=== PATIENT | female | born 1985 | race Caucasian/White ===

== ENCOUNTER 2018-03-09 14:26 | Outpatient (CLI) | payer OTHER ==
--- NOTE | 2018-03-09 15:22 | RAD ---
LUMBAR SPINE FIVE VIEWS: History: Spondylolysis. Low back pain. Comparison: None. FINDINGS: Lateral views taken in neutral, flexion, and extension positions. Lumbar vertebrae maintain normal height and alignment. Mild loss of disc space at L5-S1. No evidence of spondylolisthesis. No significant change in lateral or flexion or extension. No definite spondylol ysis although pars at L4-5 and L5-S1 are suboptimally evaluated on this study. IMPRESSION: Mild loss of disc space at L5-S1 and mild facet hypertrophy at L4-5 and L5-S1. No spondylolisthesis. Pars defect cannot be confirmed and not well evaluated. There is suggestion of a pars defect posterio rly at L5-S1. Suggest CT lumbar spine. POS: [facility]
[2018-03-09 15:24] LABS: Pregnancy Test - Urine (BHCG) Negative (Negative); Pregu Control Background? CLEAR/WHITE (CLR/WHITE); Pregu Control Bar Appear? YES (CONTROL BAR); Specific Gravity 1.022 (1.002-1.036)
== END 2018-03-09 14:27 | disposition home or self-care (01) ==
LOC: NAV RAD 14:26
PROVIDERS: ATTEND Nurse Practitioner Family
DX: M47.816 Spondylosis without myelopathy or radiculopathy, lumbar region (principal)
CPT/HCPCS: 72120; 81025

== ENCOUNTER 2018-09-24 12:09 | Emergency (ER) | payer OTHER ==
[2018-09-24] MEDS ORDERED: Lidocaine 1% (PF) 30 ML VIAL ONE (12:42)
== END 2018-09-24 13:00 | disposition home or self-care (01) ==
LOC: NAV ERS 12:09
DX: L02.412 Cutaneous abscess of left axilla (principal); E66.9 Obesity, unspecified; F41.9 Anxiety disorder, unspecified; F32.9 Major depressive disorder, single episode, unspecified; Z87.891 Personal history of nicotine dependence; Z79.899 Other long term (current) drug therapy
CPT/HCPCS: 10061; 87070; 87077; 87186; 87205; J2001

== ENCOUNTER 2019-08-10 08:38 | Emergency (ER) | payer OTHER, SELFPAY | END 2019-08-10 09:18 | disposition home or self-care (01) | LOC: NAV ERS 08:38 | DX: K04.7 Periapical abscess without sinus (principal); E66.9 Obesity, unspecified; F41.9 Anxiety disorder, unspecified; F32.9 Major depressive disorder, single episode, unspecified; Z87.891 Personal history of nicotine dependence; Z79.899 Other long term (current) drug therapy | CPT/HCPCS: 96372; 99283; J2270 ==

== ENCOUNTER 2020-08-29 23:03 | Emergency (ER) | payer OTHER ==
[2020-08-29] MEDS ORDERED: Ketorolac Tromethamine 30 MG/ML VIAL ONE (23:30)
[2020-08-29] MEDS ORDERED: Ondansetron PF 4 MG/2 ML Vial ONE (23:30)
[2020-08-29 23:33] LABS: #Basophils 0.1 thou/uL (0.0-0.2); #Lymphocytes 1.1 thou/uL (1.20-3.40); #Monocytes 0.3 thou/uL (0.11-0.59); #Neutrophils 8.5 thou/uL (1.40-6.50); %Eosinophils 0.2 % (0.0-10.0); %Lymphocytes 10.9 % (21.0-51.0); %Monocytes 3.3 % (0.0-10.0); %Neutrophils 84.7 % (42.0-75.0); Anisocytosis MODERATE=16-30 cells (100X) (0-5/hpf); Hemoglobin 10.2 g/dL (12.0-16.0); MDiff Complete? YES; Mean Corpuscular HGB CONC 31.7 g/dL (32.0-36.0); Mean Corpuscular Hemoglobin 28.2 pg (27.0-31.0); Mean Corpuscular Volume 88.8 fL (78.0-98.0); Microcytosis SLIGHT = 6-15 cells (100X) (0-5/hpf); Ovalocytes SLIGHT = 2-5 cells (100X) (0-1/hpf); Platelet Count 262 thou/uL (130-400); Platelet Morphology Comment Appears Adequate; RBC Distribution Width 21.1 % (11.5-14.5); Red Blood Cell (RBC) Count 3.61 mill/uL (4.20-5.40)
[2020-08-29 23:44] LABS: ALT (SGPT) 9 U/L (8-55); AST (SGOT) 14 U/L (5-34); Albumin 4.6 g/dL (3.5-5.0); Alkaline Phosphatase 88 U/L (40-110); Anion Gap 15 mmol/L (10-20); BUN (Urea Nitrogen) 13 mg/dL (7.0-18.7); Bilirubin, Total 5.2 mg/dL (0.2-1.2); Calc. Creatinine Clearance 0 mL/min (70-130); Calcium 9.4 mg/dL (7.8-10.44); Carbon Dioxide 22 mmol/L (22-29); Chloride 103 mmol/L (98-107); Estimated GFR-MDRD 75; Globulin 2.8 g/dL (2.4-3.5); Glucose 151 mg/dL (70-105); Lipase 10 U/L (8-78); Potassium 4.1 mmol/L (3.5-5.1); Protein, Total 7.4 g/dL (6.0-8.3); Sodium 136 mmol/L (136-145)
== END 2020-08-30 00:33 | disposition home or self-care (01) ==
LOC: NAV ERS 23:03
DX: E80.6 Other disorders of bilirubin metabolism (principal); D64.9 Anemia, unspecified; R10.811 Right upper quadrant abdominal tenderness; E11.9 Type 2 diabetes mellitus without complications; E66.9 Obesity, unspecified; F41.9 Anxiety disorder, unspecified; F32.9 Major depressive disorder, single episode, unspecified; Z87.891 Personal history of nicotine dependence; Z79.84 Long term (current) use of oral hypoglycemic drugs; Z79.899 Other long term (current) drug therapy; Z85.43 Personal history of malignant neoplasm of ovary
CPT/HCPCS: 80053; 83690; 85025; 94760; 96372; 96374; 96375; J0500; J1885; J2405

== ENCOUNTER 2021-08-05 17:02 | Emergency (ER) | payer OTHER ==
[2021-08-05] MEDS ORDERED: Lidocaine 1% (PF) 30 ML VIAL ONE (17:22)
== END 2021-08-05 17:54 | disposition home or self-care (01) ==
LOC: NAV ERS 17:02
DX: L02.412 Cutaneous abscess of left axilla (principal); E11.9 Type 2 diabetes mellitus without complications; Z87.891 Personal history of nicotine dependence; Z79.899 Other long term (current) drug therapy
CPT/HCPCS: 10060; 87070; 87077; 87186; 87205; J2001

== ENCOUNTER 2021-08-07 17:44 | Emergency (ER) | payer OTHER | END 2021-08-07 18:30 | disposition home or self-care (01) | LOC: NAV ERS 17:44 | DX: Z48.817 Encounter for surgical aftercare following surgery on the skin and subcutaneous tissue (principal); E11.9 Type 2 diabetes mellitus without complications; Z87.891 Personal history of nicotine dependence; Z79.899 Other long term (current) drug therapy | CPT/HCPCS: 99282 ==

== ENCOUNTER 2021-12-21 05:22 | Emergency (ER) | payer BC, OTHER ==
[2021-12-21 05:49] LABS: Bilirubin Moderate (Negative); Blood, Urine Trace (Negative); Clarity Slightly Cloudy (Clear); Glucose, Urine (Dipstick) Negative (Negative); Ketone, Urine Negative (Negative); Leukocyte Trace (Negative); Nitrite Negative (Negative); Protein, Urine (Dipstick) Trace mg/dL (Neg-Trace); Specific Gravity, Urine 1.025 (1.005-1.030); pH, Urine 5.5 (5.0-9.0)
[2021-12-21 06:01] LABS: Bacteria/HPF 2+ HPF (None Seen); Mucous/LPF 1+ LPF (<2+); RBC/HPF 0-3 HPF (0-3); WBC/HPF 0-3 HPF (0-3)
[2021-12-21 06:42] LABS: Pregnancy Test - Urine (BHCG) Negative (Negative); Pregu Control Background? CLEAR/WHITE (CLR/WHITE); Pregu Control Bar Appear? YES (CONTROL BAR)
[2021-12-21 06:43] LABS: Specific Gravity 1.025 (1.002-1.036)
[2021-12-21 06:47] LABS: #Basophils 0.1 thou/uL (0.0-0.2); #Eosinphils 0.2 thou/uL (0.0-0.7); #Lymphocytes 2.2 thou/uL (1.20-3.40); #Monocytes 0.4 thou/uL (0.11-0.59); #Neutrophils 7.5 thou/uL (1.40-6.50); %Eosinophils 1.8 % (0.0-10.0); %Lymphocytes 20.8 % (21.0-51.0); %Monocytes 4.1 % (0.0-10.0); %Neutrophils 72.3 % (42.0-75.0); Hemoglobin 6.1 g/dL (12.0-16.0); Mean Corpuscular HGB CONC 31.8 g/dL (32.0-36.0); Mean Corpuscular Hemoglobin 26.6 pg (27.0-31.0); Mean Corpuscular Volume 83.7 fL (78.0-98.0); Mean Platelet Volume 6.5 fL (7.4-10.4); Platelet Count 400 thou/uL (130-400); RBC Distribution Width 22.2 % (11.5-14.5); Red Blood Cell (RBC) Count 2.29 mill/uL (4.20-5.40); White Blood Cell (WBC) Count 10.4 thou/uL (4.8-10.8)
[2021-12-21 06:48] LABS: ALT (SGPT) 36 U/L (8-55); AST (SGOT) 27 U/L (5-34); Albumin 3.6 g/dL (3.5-5.0); Alkaline Phosphatase 270 U/L (40-110); Anion Gap 14 mmol/L (10-20); BUN (Urea Nitrogen) 10 mg/dL (7.0-18.7); Bilirubin, Total 4.2 mg/dL (0.2-1.2); Calc. Creatinine Clearance 0 mL/min (70-130); Calcium 9.1 mg/dL (7.8-10.44); Carbon Dioxide 24 mmol/L (22-29); Chloride 104 mmol/L (98-107); Globulin 3.3 g/dL (2.4-3.5); Glucose 201 mg/dL (70-105); Potassium 4.1 mmol/L (3.5-5.1); Protein, Total 6.9 g/dL (6.0-8.3); Sodium 138 mmol/L (136-145)
[2021-12-21 07:05] LABS: Lipase 3 U/L (8-78)
[2021-12-21 07:17] LABS: Anisocytosis SLIGHT = 6-15 cells (100X) (0-5/hpf); MDiff Complete? YES; Platelet Morphology Comment Appears Adequate
[2021-12-21] MEDS ORDERED: Ondansetron PF 4 MG/2 ML Vial ONE (07:50)
[2021-12-21] MEDS ORDERED: Morphine 4 MG/ML VIAL ONE (07:50)
[2021-12-21] MEDS ORDERED: Sodium Chloride 0.9% 1,000 ML ONE (08:04)
[2021-12-21 08:54] LABS: SARS-CoV-2 NAA Rapid Test Not Detected (NotDetected)
== END 2021-12-21 08:46 | disposition short-term general hospital (02) ==
LOC: NAV ERS 05:22
DX: K68.11 Postprocedural retroperitoneal abscess (principal); R10.31 Right lower quadrant pain; R10.32 Left lower quadrant pain; D64.9 Anemia, unspecified; E11.9 Type 2 diabetes mellitus without complications; E66.9 Obesity, unspecified; Z87.891 Personal history of nicotine dependence; Z20.822 Contact with and (suspected) exposure to COVID-19; Z79.84 Long term (current) use of oral hypoglycemic drugs; Z79.899 Other long term (current) drug therapy
CPT/HCPCS: 74176; 80053; 81003; 81015; 81025; 83690; 85025; 87086; 94760; 96374; 96375; J2270; J2405; J7050; U0002

== ENCOUNTER 2022-01-01 08:07 | Emergency (ER) | payer BC | END 2022-01-01 08:45 | disposition home or self-care (01) | LOC: NAV ERS 08:07 | DX: T83.098A Other mechanical complication of other urinary catheter, initial encounter (principal); R10.817 Generalized abdominal tenderness; E66.01 Morbid (severe) obesity due to excess calories; E11.9 Type 2 diabetes mellitus without complications; Z87.891 Personal history of nicotine dependence; Z79.84 Long term (current) use of oral hypoglycemic drugs; Z79.899 Other long term (current) drug therapy | CPT/HCPCS: 99283 ==

== ENCOUNTER 2022-05-24 18:54 | Emergency (ER) | payer BC, SELFPAY | END 2022-05-24 19:45 | disposition home or self-care (01) | LOC: NAV ERS 18:54 | DX: F32.A Depression, unspecified (principal); F41.9 Anxiety disorder, unspecified; E11.9 Type 2 diabetes mellitus without complications; E66.9 Obesity, unspecified; Z87.891 Personal history of nicotine dependence; Z79.84 Long term (current) use of oral hypoglycemic drugs; Z79.899 Other long term (current) drug therapy | CPT/HCPCS: 99283 ==

== ENCOUNTER 2022-08-22 20:29 | Emergency (ER) | payer OTHER, SELFPAY ==
[2022-08-22] MEDS ORDERED: Acetaminophen 500 MG TAB ONE (20:54)
[2022-08-22] MEDS ORDERED: methylPREDNISolone Sod Succ/PF 125 MG/2 ML VIAL ONE (21:19)
[2022-08-22] MEDS ORDERED: AMOXicillin 250 MG CAP ONE (21:19)
== END 2022-08-22 21:35 | disposition home or self-care (01) ==
LOC: NAV ERS 20:29
DX: J20.9 Acute bronchitis, unspecified (principal); E11.9 Type 2 diabetes mellitus without complications; Z87.891 Personal history of nicotine dependence
CPT/HCPCS: 93005; 96372; J2930

== ENCOUNTER 2023-06-08 09:03 | Outpatient (CLI) | payer OTHER | END 2023-06-08 09:04 | disposition home or self-care (01) | LOC: NAV RAD 09:03 | PROVIDERS: ATTEND Family Medicine | DX: M25.562 Pain in left knee (principal); M54.6 Pain in thoracic spine | CPT/HCPCS: 72072 ==

== ENCOUNTER 2023-09-01 17:30 | Emergency (ER) | payer OTHER | END 2023-09-01 18:50 | disposition home or self-care (01) | LOC: NAV ERS 17:30 | DX: S97.121A Crushing injury of right lesser toe(s), initial encounter (principal); S92.511A Displaced fracture of proximal phalanx of right lesser toe(s), initial encounter for closed fracture; E11.9 Type 2 diabetes mellitus without complications; E66.9 Obesity, unspecified; W23.0XXA Caught, crushed, jammed, or pinched between moving objects, initial encounter; Z87.891 Personal history of nicotine dependence; Z79.84 Long term (current) use of oral hypoglycemic drugs; Z79.4 Long term (current) use of insulin; Z79.899 Other long term (current) drug therapy | CPT/HCPCS: 28515 ==

== ENCOUNTER 2024-03-27 16:30 | Emergency (ER) | payer OTHER ==
[2024-03-27 17:05] LABS: Bilirubin Negative (Negative); Blood, Urine Trace (Negative); Glucose, Urine (Dipstick) Negative (Negative); Ketone, Urine Negative (Negative); Leukocyte Negative (Negative); Nitrite Negative (Negative); Protein, Urine (Dipstick) Negative (Neg-Trace)
[2024-03-27 17:12] LABS: CAUTI Indications for Culture Pelvic or flank pain; Clarity Hazy (Clear); RBC/HPF None Seen HPF (0-3); Urine Culture Reflex No No; WBC/HPF 0-3 HPF (0-3)
[2024-03-27 17:13] LABS: Bacteria/HPF Rare-Few HPF (None Seen)
[2024-03-27 17:40] LABS: Pregnancy Test - Urine (BHCG) Negative (Negative); Pregu Control Background? CLEAR/WHITE (CLR/WHITE)
[2024-03-27 17:41] LABS: Pregu Control Bar Appear? YES (CONTROL BAR)
[2024-03-27 18:18] LABS: ALT (SGPT) 15 U/L (8-55); AST (SGOT) 17 U/L (5-34); Albumin 4.2 g/dL (3.5-5.0); Alkaline Phosphatase 118 U/L (40-110); Anion Gap 15 mmol/L (10-20); BUN (Urea Nitrogen) 7 mg/dL (7.0-18.7); Bilirubin, Total 4.9 mg/dL (0.2-1.2); Calc. Creatinine Clearance 0 mL/min (70-130); Calcium 9.3 mg/dL (7.8-10.44); Carbon Dioxide 23 mmol/L (22-29); Chloride 106 mmol/L (98-107); Estimated GFR 90; Globulin 2.5 g/dL (2.4-3.5); Glucose 105 mg/dL (70-105); Potassium 3.9 mmol/L (3.5-5.1); Protein, Total 6.7 g/dL (6.0-8.3); Sodium 140 mmol/L (136-145)
[2024-03-27 18:19] LABS: Troponin I 0.021 ng/mL (< 0.028)
[2024-03-27 18:37] LABS: #Basophils 0.1 thou/uL (0.0-0.2); #Eosinphils 0.1 thou/uL (0.0-0.7); #Monocytes 0.3 thou/uL (0.11-0.59); #Neutrophils 5.8 thou/uL (1.40-6.50); %Basophils 0.9 % (0.0-1.0); %Eosinophils 0.6 % (0.0-10.0); %Lymphocytes 24.5 % (21.0-51.0); %Monocytes 3.3 % (0.0-10.0); %Neutrophils 70.7 % (42.0-75.0); Anisocytosis MARKED = >30 cells (100X) (0-5/hpf); Hematocrit 31.5 % (36.0-47.0); Hemoglobin 9.7 g/dL (12.0-16.0); Hypochromia SLIGHT = 6-15 cells (100X) (0-5/hpf); MDiff Complete? YES; Mean Corpuscular HGB CONC 30.9 g/dL (32.0-36.0); Mean Corpuscular Hemoglobin 27.4 pg (27.0-31.0); Mean Corpuscular Volume 88.7 fl (78.0-98.0); Mean Platelet Volume 7.7 fL (7.4-10.4); Platelet Count 193 10x3/uL (130-400); Polychromasia MODERATE = 3-4 cells (100X) (0-2/hpf); RBC Distribution Width 22.1 % (11.5-14.5); Red Blood Cell (RBC) Count 3.55 mill/uL (4.20-5.40); White Blood Cell (WBC) Count 8.2 10x3/uL (4.8-10.8)
[2024-03-27] MEDS ORDERED: Ketorolac Tromethamine 30 MG (1 mL) VIAL ONE (19:23)
== END 2024-03-27 19:30 | disposition home or self-care (01) ==
LOC: NAV ERS 16:30
DX: M54.50 Low back pain, unspecified (principal); E11.9 Type 2 diabetes mellitus without complications; Z87.891 Personal history of nicotine dependence; Z79.84 Long term (current) use of oral hypoglycemic drugs
CPT/HCPCS: 71045; 74176; 80053; 81001; 81025; 84484; 85025; 93005; 96374; J1885

== ENCOUNTER 2024-08-30 20:19 | Emergency (ER) | payer OTHER ==
[2024-08-30] MEDS ORDERED: Lidocaine 1% w/Epinephrine 1:100K 20 ML VIAL ONE (21:31)
[2024-08-30] MEDS ORDERED: Doxycycline 100 MG CAP ONE (21:59)
[2024-08-30] MEDS ORDERED: Bacitracin 1 PK ONE (21:59)
== END 2024-08-30 22:09 | disposition home or self-care (01) ==
LOC: NAV ERS 20:19
DX: L02.412 Cutaneous abscess of left axilla (principal); L73.2 Hidradenitis suppurativa; E11.9 Type 2 diabetes mellitus without complications; Z87.891 Personal history of nicotine dependence
CPT/HCPCS: 10060

== ENCOUNTER 2024-09-06 07:49 | Emergency (ER) | payer OTHER ==
[2024-09-06] MEDS ORDERED: Acetaminophen/Codeine 30-300mg Tablet ONE (09:00)
== END 2024-09-06 09:05 | disposition home or self-care (01) ==
LOC: NAV ERS 07:49
DX: S05.12XA Contusion of eyeball and orbital tissues, left eye, initial encounter (principal); R03.0 Elevated blood-pressure reading, without diagnosis of hypertension; E11.9 Type 2 diabetes mellitus without complications; K21.9 Gastro-esophageal reflux disease without esophagitis; Z87.891 Personal history of nicotine dependence; Z79.899 Other long term (current) drug therapy; Z79.84 Long term (current) use of oral hypoglycemic drugs; W06.XXXA Fall from bed, initial encounter; W22.8XXA Striking against or struck by other objects, initial encounter
CPT/HCPCS: 70450; 70486

== ENCOUNTER 2025-09-26 01:04 | Emergency (ER) | payer SELFPAY ==
[2025-09-26] MEDS ORDERED: diphenhydrAMINE 25 MG CAP ONE (01:37)
== END 2025-09-26 01:45 | disposition home or self-care (01) ==
LOC: NAV ERS 01:04
DX: R05.9 Cough, unspecified (principal); R09.81 Nasal congestion; R11.10 Vomiting, unspecified; E11.9 Type 2 diabetes mellitus without complications; Z87.891 Personal history of nicotine dependence; Z79.84 Long term (current) use of oral hypoglycemic drugs; Z79.899 Other long term (current) drug therapy
CPT/HCPCS: 99283